=== PATIENT | female | born 1955 | race Caucasian/White ===

== ENCOUNTER 2019-12-08 14:56 | Inpatient (IN) | payer OTHER ==
[~2019-12-08] VITALS: Ht 162.6 cm; Wt 74.6 kg
[2019-12-08 15:42] LABS: BASOPHIL % 1.1 % (0-2); PLATELET COUNT 349 x10^3mcL (130-400); RED CELL DISTRIBUTION WIDTH 13.6 % (11.5-14.5)
[2019-12-08 15:56] LABS: CALCIUM 9.2 mg/dL (8.5-10.1); CARBON DIOXIDE 28.6 mmol/L (21-32); CHLORIDE SERUM 104 mmol/L (98-107); CREATININE SERUM 0.6 mg/dL (0.6-1.0); GFR1 > 60 mL/min; GLUCOSE SERUM 107 mg/dL (74-106); POTASSIUM SERUM 4.1 mmol/L (3.5-5.1); SODIUM SERUM 140 mmol/L (136-145)
[2019-12-08 16:01] LABS: ALKALINE PHOSPHATASE 131 U/L (46-116); ALT/SGPT 27 U/L (14-59); AST/SGOT 19 U/L (15-37); BILIRUBIN TOTAL 0.21 mg/dL (0.20-1.00); TOTAL PROTEIN, SERUM 8.2 g/dL (6.4-8.2)
[2019-12-08 16:06] LABS: ALBUMIN 3.1 g/dL (3.4-5.0)
[2019-12-08 18:00] LABS: CHOLESTEROL/HDL RATIO 4.3
[2019-12-08 21:54] VITALS: BP 108/71
[2019-12-08 21:58] VITALS: Ht 162.6 cm; Wt 74.6 kg
[2019-12-09 05:51] VITALS: BP 98/66
[2019-12-09 07:08] LABS: BASOPHIL % 0.7 % (0-2); PLATELET COUNT 256 x10^3mcL (130-400); RED CELL DISTRIBUTION WIDTH 13.8 % (11.5-14.5)
[2019-12-09 07:16] LABS: CALCIUM 9.1 mg/dL (8.5-10.1); CARBON DIOXIDE 26.5 mmol/L (21-32); CHLORIDE SERUM 107 mmol/L (98-107); CREATININE SERUM 0.6 mg/dL (0.6-1.0); GFR1 > 60 mL/min; GLUCOSE SERUM 96 mg/dL (74-106); MAGNESIUM 2.2 mg/dL (1.8-2.4); PHOSPHOROUS 3.8 mg/dL (2.5-4.9); POTASSIUM SERUM 3.5 mmol/L (3.5-5.1); SODIUM SERUM 143 mmol/L (136-145)
[2019-12-09 09:18] VITALS: BP 95/66
[2019-12-09 13:17] VITALS: BP 113/72
[2019-12-09 14:44] VITALS: BP 113/72
== END 2019-12-09 16:44 | disposition home or self-care (01) | DRG 920 ==
LOC: ED 14:56 → MU 16:32
PROVIDERS: Emergency Medicine; ADMIT Internal Medicine
PROC: 0F24X0Z Change Drainage Device in Gallbladder, External Approach (ICD-10-PCS; principal; 2019-12-09)
DX: T85.520A Displacement of bile duct prosthesis, initial encounter (principal); E44.1 Mild protein-calorie malnutrition; Y83.8 Other surgical procedures as the cause of abnormal reaction of the patient, or of later complication, without mention of misadventure at the time of the procedure; Y92.89 Other specified places as the place of occurrence of the external cause; Z68.27 Body mass index [BMI] 27.0-27.9, adult
CPT/HCPCS: C1884; G0378; J7040; J7060; Q0092